=== PATIENT | male | born 1990 | race Caucasian/White ===

== ENCOUNTER 2023-01-26 11:54 | Day surgery (SDC) | payer OTHER, SELFPAY ==
[2023-01-24 07:34] VITALS: BMI 29.6
[2023-01-26 12:35] VITALS: BMI 27.1
[2023-01-26] MEDS: LACTATED RINGERS 1,000 ML 42 ML IV (12:43)
[2023-01-26] MEDS: OXYMETAZOLINE NASAL SPRAY 30 ML 2 SPRAYS NASAL (12:43)
[2023-01-26] MEDS: ACETAMINOPHEN 325 MG TABLET 975 MG PO (12:43)
[2023-01-26 12:52] VITALS: BP 122/89; PULSE 75; RESP 16; TEMP 36.3; O2SAT 100
--- NOTE | 2023-01-26 13:20 | P.OP_ITS ---
Operative Date/Time/Diagnoses Date of procedure: 01/26/23 Time of procedure: 15:03 Pre-op diagnosis: Nasal airway obstruction, septal deviation, inferior turbinate hypertrophy, EZEQUIEL Post-op diagnosis: same Procedure & Clinicians Procedure: 1. Septoplasty 2. Bilateral inferior turbinate reduction via intramural cautery Same procedure as scheduled: Yes Indications: 32 Year old with the above diagnoses incompletely managed with medical therapy presents for the above procedure. Following discussion of the material risks benefits complications and alternatives, the patient elected to proceed. Surgeon: Mark Charles Click Yes if Unassisted: Yes Anesthesia Type: General and Local Operative Notes Findings: 2+ right septal deviation, LEFT low anterior septal spur with flap perforation in that area, [id number]-right inferior turbinate hypertrophy Estimated Blood Loss (mL): 40 Procedure in detail: Following identification and confirmation of consent as well as preoperative Afrin nasal spray, the patient was brought to the operating room suite and placed in the supine position. General endotracheal anesthesia was administered. I infiltrated the septum widely bilaterally with 1% lidocaine 1 100,000 epinephrine followed by temporary packing with cotton with Afrin and 4% lidocaine. Following sterile prep and drape, the packing was removed and I performed a right yuriy-transfixion incision, elevated the right mucoperichondrial and mucoperiosteal flap. I disarticulated near the bony/cartilaginous junction and elevated the left mucoperiosteal flap. Deviated portions of the perpendicular plate of the ethmoid and vomer were resected. The residual quadrilateral cartilage was further straightened by trimming it inferiorly as well as reducing the maxillary crest. A 2 mm strip of cartilage paralleling the residual 1 cm dorsal and caudal strut was resected to further straighten the quadrilateral cartilage. The hemitransfixion incision was closed with interrupted 5 0 chromic followed by a running 4 0 plain gut mattress suture to reapproximate the septal flaps. At case completion, Salazar air channel s ilastic splints were placed bilaterally, sutured anteriorly with a single 4 0 nylon. The head of each inferior turbinate had been previously infiltrated with additional local anesthetic and a 25 gauge spinal needle was used to impale the length of the turbinate, with cautery on a setting of 15 activated on slow withdrawal over 2 passes. The turbinates were then outfractured. The procedure completed, sponge and needle counts were correct and the patient was extubated in the operating room and taken to recovery room in stable condition without known complication. Complications: none Post-operative Condition: stable Plan for aftercare: Nasal saline every hour while awake, begin irrigations t.i.d. tomorrow if desired. Polysporin to the nostrils at all times, Tylenol alternating with Advil for pain control, oxycodone for breakthrough pain. Elevate head of bed, no nose blowing, no straining for 2 weeks. Ice directly under the nose on the upper lip has tolerated 24-48 hours at a minimum. Follow-up in 1 week for nasal splint removal.
--- NOTE | 2023-01-26 13:20 | PM.PREOP ---
Pre-operative Note Interval Note History & Physical reviewed/Exam performed by Physician: Yes Changes to H&P: No
--- NOTE | 2023-01-26 14:06 | SUR.OPER ---
Supine on padded OR bed, head on pillow, arms padded and tucked at sides, legs uncrossed, safety belt at thigh, tape over blanket over lower legs .
[2023-01-26] MEDS: BACITRACIN OINT 0.9 GM PCKT 1 APPLIC TOP (14:07)
[2023-01-26] MEDS: LIDOCAINE 4% SOLN 50 ML 20 ML TOP (14:12)
[2023-01-26] MEDS: LIDOCAINE 1% W/EPI 1 ML SUBCUT (14:12)
[2023-01-26 15:11] VITALS: BP 127/48; PULSE 82; RESP 14; TEMP 36.6; O2SAT 96
[2023-01-26 15:17] VITALS: BP 123/83; PULSE 88; RESP 14; TEMP 36.6; O2SAT 96
[2023-01-26 15:22] VITALS: BP 122/87; PULSE 84; RESP 13; TEMP 36.5; O2SAT 99
[2023-01-26 15:44] VITALS: BP 136/66; PULSE 71; RESP 14; O2SAT 97
[2023-01-26 16:37] VITALS: BP 111/64; PULSE 67; RESP 16; TEMP 36.7; O2SAT 96
== END 2023-01-26 17:00 | disposition home or self-care (01) ==
PROVIDERS: Referring Provider Otolaryngology; Visit Provider Otolaryngology
PROC: (CPT 30520; principal; 2023-01-26 13:00)
DX: J34.89 Other specified disorders of nose and nasal sinuses (principal); J34.3 Hypertrophy of nasal turbinates; J34.2 Deviated nasal septum; G47.33 Obstructive sleep apnea (adult) (pediatric)
CPT/HCPCS: 30520; 30802; J1100; J1885; J2405; J2704; J3010

== ENCOUNTER 2023-12-05 08:33 | Day surgery (SDC) | payer OTHER, SELFPAY ==
[2023-11-29 14:02] VITALS: BMI 30.5
[2023-12-05] MEDS: LACTATED RINGERS 1,000 ML 42 ML IV (08:48)
[2023-12-05] MEDS: ACETAMINOPHEN 325 MG TABLET 975 MG PO (08:48)
[2023-12-05 09:11] VITALS: BP 138/80; PULSE 88; RESP 16; TEMP 31.1; O2SAT 99; BMI 30.5
--- NOTE | 2023-12-05 09:25 | PM.PREOP ---
Pre-operative Note COVID-19 COVID-19 status: Not tested Interval Note History & Physical reviewed/Exam performed by Physician: Yes Changes to H&P: No ASA Class (for procedural sedation): II
[2023-12-05] MEDS: CEFAZOLIN 2 GM/100 ML PREMIX 100 ML IV (10:10)
[2023-12-05] MEDS: BUPIVACAINE 0.5% (PF) 30 ML, EPINEPHrine 0.15 MG INJ (10:33)
--- NOTE | 2023-12-05 10:37 | SUR.OPER ---
Supine on padded OR bed with pink pad, head on pillow, arms padded and tucked at sides, legs uncrossed, safety belt at thigh, tape over blanket over lower legs .
--- NOTE | 2023-12-05 11:17 | PM.OP.1 ---
Operative Date/Time/Diagnoses Date of procedure: 12/05/23 Time of procedure: 11:17 Pre-op diagnosis: Left inguinal hernia Post-op diagnosis: same Procedure & Clinicians Procedure: Laparoscopic left inguinal hernia repair with mesh Same procedure as scheduled: Yes Surgeon: Feroz Saba [employer]writing [employer]erks Supervisor: Heraclio Ferrera Anesthesia Type: General Operative Notes Procedure in detail: The patient was given preoperative antibiotics. The patient was brought to the operating room, placed on the table in the supine position with the arms tucked and general anesthesia was induced. The abdomen was prepped and draped in the usual fashion. A time-out was performed. A 2 cm transverse incision was created superior to the umbilicus and dissection was carried down to the fascia. The fascia was grasped with a Ethan clamp to elevate the abdominal wall. The fascia was scored transversely with cautery. A Peon clamp was used to zuniga the peritoneum. The Alejandra port was placed and the abdomen was insufflated to 15 mmHg. The camera was inserted, there was no evidence of any injury from the entry. 5 mm ports were placed under direct vision in the mid left and mid right abdomen. The patient was positioned in Trendelenburg. We created left peritoneal flap. The peritoneum was dissected off the left cord structures and the Jasiel's ligament was exposed. There appeared to be a potential sliding hernia fatty tissue. A small cord lipoma was dissected out of the internal ring. A large left Bard mesh was brought in and placed over the defect with the medial edge against Jasiel's ligament. We then closed the peritoneal flap with a running 3-0 barbed suture. We took one last look around the abdomen and saw no other abnormalities. The suture was removed and accounted for. The 5 mm ports were removed under direct vision. The abdomen was desufflated. The Alejandra port was removed. Additional local was injected into the fascia and the fascial incision was closed with 2 interrupted 0 Vicryl sutures. The skin incisions were closed with 4 Monocryl, Steri-Strips and Band-Aids. EBL: 10 mL Heraclio CORTEZ provided assistance with exposure, retraction and closure of incisions. Post-operative Condition: stable Disposition: PACU
[2023-12-05 11:30] VITALS: BP 138/78; PULSE 56; RESP 16; TEMP 36.5; O2SAT 97
[2023-12-05 11:35] VITALS: BP 132/79; PULSE 65; RESP 15; TEMP 36.4; O2SAT 95
[2023-12-05 11:41] VITALS: BP 135/85; PULSE 68; RESP 16; TEMP 36.4; O2SAT 95
[2023-12-05 11:47] VITALS: BP 139/81; PULSE 61; RESP 13; TEMP 36.4; O2SAT 96
[2023-12-05] MEDS: hydrOXYzine 50 MG/ML INJ IM (11:47)
[2023-12-05] MEDS: OXYCODONE IR 5 MG TABLET PO ×2 (11:59→12:44)
[2023-12-05 12:02] VITALS: BP 122/70; PULSE 63; RESP 22; TEMP 36.5; O2SAT 97
--- NOTE | 2023-12-05 12:34 | SUR.PHASEII ---
1215 - IVF's wide open. Rests quietly...nad.
== END 2023-12-05 12:50 | disposition home or self-care (01) ==
PROVIDERS: Referring Provider Surgery; Visit Provider Surgery
PROC: 0YQ64ZZ Repair Left Inguinal Region, Percutaneous Endoscopic Approach (ICD-10-PCS; CPT 49650; principal; 2023-12-05 09:45)
DX: K40.90 Unilateral inguinal hernia, without obstruction or gangrene, not specified as recurrent (principal); D17.6 Benign lipomatous neoplasm of spermatic cord
CPT/HCPCS: 49650; J0171; J0330; J0690; J1100; J1885; J2405; J2704; J3010; J3410